=== PATIENT | female | born 1995 | race Asian ===

== ENCOUNTER 2021-01-14 15:02 | Emergency (ER) | payer OTHER ==
[~2021-01-14] VITALS: Ht 157.5 cm; Wt 39.5 kg
[2021-01-14] MEDS ORDERED: MULT1TAB8 PO (15:13)
[2021-01-14] MEDS ORDERED: NS 1,000 ML IV ONE (15:55)
[2021-01-14] MEDS ORDERED: ACETAMINOPHEN TAB 650MG DOSE (2X325MG) PO ONE (16:25)
[2021-01-14 16:43] LABS: BASO % 0.2 % (0.0-1.0); EOS # 0.1 10^3/uL (0.0-0.5); EOS % 0.8 % (0.0-3.0); HEMATOCRIT 38.8 % (36.0-47.0); HEMOGLOBIN 12.5 g/dl (12.0-15.5); LYMPH # 0.7 10^3/uL (1.5-5.0); LYMPH % 10.7 % (24.0-44.0); MEAN CORPUSCULAR HEMOGLOBIN 29.6 pg (27.0-33.0); MEAN CORPUSCULAR HGB CONC 32.2 g/dl (32.0-36.5); MEAN CORPUSCULAR VOLUME 91.9 fl (80.0-96.0); MONO # 0.3 10^3/uL (0.0-0.8); NEUTROPHILS # 5.4 10^3/uL (1.5-8.5); PLATELET COUNT, AUTOMATED 262 10^3/uL (150-450); RED BLOOD COUNT 4.22 10^6/uL (4.00-5.40); WHITE BLOOD COUNT 6.5 10^3/uL (4.0-10.0)
[2021-01-14 17:07] LABS: ALBUMIN 3.5 GM/DL (3.2-5.2); BILIRUBIN,DIRECT 0.1 MG/DL (0.0-0.2); BILIRUBIN,TOTAL 0.3 MG/DL (0.2-1.0); TOTAL PROTEIN 7.4 GM/DL (6.4-8.2)
[2021-01-14 18:30] VITALS: BP 101/53
== END 2021-01-14 18:38 | disposition home or self-care (01) ==
LOC: M ED 15:02
DX: R11.10 Vomiting, unspecified (principal); R51.9 Headache, unspecified; Z91.018 Allergy to other foods

== ENCOUNTER 2021-03-09 02:48 | Emergency (ER) | payer OTHER ==
[~2021-03-09] VITALS: Ht 160 cm; Wt 41.1 kg
[~2021-03-09 02:48] MED LIST: MULT1TAB8 PO
[2021-03-09] MEDS ORDERED: ESTA0.25 PO (03:03)
[2021-03-09 03:57] LABS: URINE PREG TEST NEGATIVE (NEGATIVE)
[2021-03-09] MEDS ORDERED: LIDOCAINE W/EPINEPHRINE 1% 20ML VIAL SC ONE (05:10)
[2021-03-09] MEDS ORDERED: ONDANSETRON 4 MG ORAL DISINTEGRATING TAB PO STA (05:24)
[2021-03-09] MEDS ORDERED: KETO10TAB PO (06:18)
[2021-03-09] MEDS ORDERED: ONDA4TAB6 PO (06:18)
[2021-03-09] MEDS ORDERED: KETOROLAC TROMETHAMINE 10 MG TAB PO ONE (06:20)
[2021-03-09] MEDS ORDERED: BOOSTRIX/ADACEL VACCINE (DIPHTH/PERTUSS/ACELL/TETANUS) 0.5ML SYR IM ONE (06:20)
[2021-03-09 06:23] VITALS: BP 103/60
== END 2021-03-09 06:47 | disposition home or self-care (01) ==
LOC: M ED 02:48
DX: S01.81XA Laceration without foreign body of other part of head, initial encounter (principal); W10.8XXA Fall (on) (from) other stairs and steps, initial encounter; Y92.018 Other place in single-family (private) house as the place of occurrence of the external cause; Z91.018 Allergy to other foods; Z79.3 Long term (current) use of hormonal contraceptives
CPT/HCPCS: 70450; 72125; 84703; 90471; 90715; 99284; Q0162

== ENCOUNTER 2021-03-13 16:33 | Emergency (ER) | payer OTHER ==
[~2021-03-13] VITALS: Ht 149.9 cm; Wt 41.5 kg
[~2021-03-13 16:33] MED LIST changes: +ESTA0.25 PO; +KETO10TAB PO; +ONDA4TAB6 PO
[2021-03-13 16:34] VITALS: BP 117/75
== END 2021-03-13 17:32 | disposition home or self-care (01) ==
LOC: M ED 16:33
DX: Z48.02 Encounter for removal of sutures (principal); Z79.3 Long term (current) use of hormonal contraceptives